=== PATIENT | male | born 1980 | race Caucasian/White ===

== ENCOUNTER 2023-11-01 09:04 | Day surgery (SDC) | payer OTHER ==
--- NOTE | 2023-11-01 09:33 | HP ---
DATE OF SURGERY: 11/01/2023 HISTORY OF PRESENT ILLNESS: The patient is a 43-year-old with no prior colonoscopy and history of colon in grandmother and uncles. No bloody stools. PAST MEDICAL HISTORY: Diabetes, hypertension. PAST SURGICAL HISTORY: Cardiac catheterization. Cholecystectomy. Gastric bypass. T&A. Vasectomy. MEDICATIONS: Multivitamins, aspirin, Mounjaro, metoprolol, metformin. ALLERGIES: NKDA. FAMILY HISTORY: Colon cancer uncles, aunts, grandparents. Heart disease, diabetes. SOCIAL HISTORY: No smoking or alcohol abuse. REVIEW OF SYSTEMS: Twelve systems reviewed. Overweight otherwise pertinent for diabetes and hypertension. Other systems negative or noncontributory as above and per preadmission questionnaire. PHYSICAL EXAMINATION: Height 5 feet 8 inches. BMI 45.6. GENERAL: No acute distress. HEENT: Sclerae nonicteric. EOMI. Oral mucous membranes moist. NECK: No JVD. CHEST: Equal excursion, nonlabored breathing. CVS: Regular rate and rhythm. ABDOMEN: Soft. EXTREMITIES: No cyanosis or edema. NEURO: Alert, oriented, moving extremities symmetrically. RECTAL: Deferred timed to endoscopy exam. PSYCH: Appropriate mood and affect. SKIN: Dry. IMPRESSION: History of polyps, family history of colon cancer. He is in need of follow up screening colonoscopy. General risk of bleeding or infection, risk of bowel injury or perforation possibly requiring further procedure, risk of missed or nondiagnosis or incomplete exam, possibly requiring barium enema, other studies or procedures, general risk of anesthesia or sedation, risk of bowel prep or sedation but not limited to, consent obtained. Will proceed with outpatient colonoscopy with MAC anesthesia. Continue medications for hypertension and diabetes.
[2023-11-01 09:51] VITALS: RESP 18; O2SAT 99
[2023-11-01] MEDS: Lactated Ringers 1,000 ML IV SCH (09:54)
[2023-11-01] MEDS ORDERED: Lactated Ringers 1,000 ML IV ONE (11:50)
[2023-11-01] MEDS ORDERED: Xylocaine-Mpf 2% 5 Ml Vial ONE (12:31)
[2023-11-01] MEDS ORDERED: DIPRIVAN 200 MG/20 ML IV ONE ×2 (12:31→12:46)
[2023-11-01] MEDS ORDERED: Versed 2 MG/2 ML Injection ONE (12:32)
[2023-11-01] MEDS ORDERED: SUBLIMAZE 100 MCG/2 ML ONE (12:32)
[2023-11-01] MEDS ORDERED: GlucaGen 1 MG ONE (12:39)
[2023-11-01] MEDS ORDERED: Ephedrine Sulfate 50 MG/ML ONE (12:57)
--- NOTE | 2023-11-01 13:37 | OP ---
SURGERY DATE/TIME: 11/01/2023 1231 PREOPERATIVE DIAGNOSIS: History of polyps, family history of colon cancer. POSTOPERATIVE DIAGNOSES: 1) Small polyp transverse colon, sigmoid colon. 2) Fair bowel prep. 3) Withdrawal time approximately 8 minutes 30 seconds. 4) ASA Class III. PROCEDURES: 1) Colonoscopy to cecum. 2) Hot biopsy polypectomy small early polyp versus hyperplastic lesion transverse colon. 3) Hot biopsy polypectomy small early polyp versus hyperplastic lesion sigmoid colon. SURGEON: Dr. Fernando Guillaume M.D. ANESTHESIA: MAC. QUANTITATIVE BLOOD LOSS: Minimal. INDICATIONS: As noted above. Risks and benefits explained in detail but not limited to and consent obtained. DESCRIPTION OF PROCEDURE AND FINDINGS: The patient is taken to the endoscopy room. MAC anesthesia induced. After official time out and no disagreement with planned procedure, digital rectal exam did not reveal any rectal masses. Video colonoscope inserted and passed up through the slightly tortuous sigmoid, descending, transverse and ascending colon around to the cecum. Appendiceal orifice and valve well visualized and photo documented. Prep overall was fair with a moderate amount of liquidy stool throughout the colon limiting exam for very small lesions this is suctioned irrigated as clear as possible but it did limit the exam slightly for very small lesions. The scope is carefully withdrawn over the next 8 minutes and 30 seconds. Small 2 mm polyp in the transverse colon was removed with hot biopsy polypectomy. Good hemostasis noted. The scope is slowly and carefully withdrawn back to sigmoid colon. Another small early polyp versus hyperplastic lesion removed with hot biopsy polypectomy. Good hemostasis noted. Otherwise, the scope is pulled back. No signs of any large polyps, masses or any other obstructing lesion. Findings discussed with the family out in the waiting area.
[2023-11-01 13:48] VITALS: BP 116/75; PULSE 74; TEMP 97.7
== END 2023-11-01 13:55 | disposition home or self-care (01) ==
LOC: SDC 09:04
PROVIDERS: ATTEND Surgery
DX: Z12.11 Encounter for screening for malignant neoplasm of colon (principal); Z09 Encounter for follow-up examination after completed treatment for conditions other than malignant neoplasm; Z86.010 Personal history of colon polyps; Z80.0 Family history of malignant neoplasm of digestive organs; E11.9 Type 2 diabetes mellitus without complications; I10 Essential (primary) hypertension; D12.5 Benign neoplasm of sigmoid colon
CPT/HCPCS: 82947; 93005; J1610; J2250; J2704; J3010